=== PATIENT | female | born 1995 | race Two or more races ===

== ENCOUNTER 2019-04-27 17:09 | Emergency (ER) | payer SELFPAY ==
[~2019-04-27] VITALS: Ht 162.6 cm; Wt 63.5 kg
[2019-04-27 17:20] VITALS: BP 114/77
[2019-04-27 18:01] LABS: Basophils # (auto) 0 uL; Basophils % (auto) 0.7 % (0.0-2.0); Eosinophils # (auto) 0 uL; Eosinophils % (auto) 0.6 % (0.0-7.0); Hemoglobin 13.4 g/dL (12.2-16.2); Lymphocytes # (auto) 1.6 uL; Mean Corpuscular Hemoglobin 30.9 pg (28.0-32.0); Mean Corpuscular Hgb Conc. 34.3 g/dL (32.0-36.0); Mean Corpuscular Volume 90.2 fL (80.0-100.0); Monocytes # (auto) 0.3 uL; Monocytes % (auto) 6.2 % (0.0-12.0); Neutrophils # (auto) 3.6 uL; Neutrophils % (auto) 64.5 % (37.0-80.0); Nucleated Red Blood Cells % 0.1 %; Platelet Count (auto) 245 10^3/uL (140-450); Red Blood Cells 4.32 10^6/uL (4.0-5.20); Red Cell Distribution Width 12.8 % (11.8-14.3); White Blood Cell 5.6 10^3/uL (4.4-10.8)
[2019-04-27 18:11] LABS: Alanine Aminotransferase 20 U/L (13-56); Albumin 4.2 g/dL (3.4-5.0); Anion Gap 10 (5-15); Aspartate Aminotransferase 12 U/L (15-37); BUN/Creatinine Ratio 16.4; Blood Urea Nitrogen 11 mg/dL (7-18); Calcium 8.7 mg/dL (8.5-10.1); Carbon Dioxide 24 mmol/L (21-32); Chloride 104 mmol/L (98-107); GFR African American 139 mL/min; GFR Non-African American 115 mL/min; Glucose 85 mg/dL (74-106); Potassium 3.9 mmol/L (3.5-5.1); Sodium 138 mmol/L (136-145)
[2019-04-27 18:16] LABS: Alkaline Phosphatase 86 U/L (45-117); Bilirubin, Total 0.5 mg/dL (0.2-1.0); Total Protein 8.4 g/dL (6.4-8.2)
== END 2019-04-28 03:55 | disposition left against medical advice (07) ==
LOC: ER 17:09
DX: R42 Dizziness and giddiness (principal); R51 Headache; Z53.21 Procedure and treatment not carried out due to patient leaving prior to being seen by health care provider
CPT/HCPCS: 36415; 80053; 82962; 84484; 84702; 85025; 93005

== ENCOUNTER 2022-11-09 20:17 | Emergency (ER) | payer MEDICAID ==
[~2022-11-09] VITALS: Ht 154.9 cm; Wt 65.5 kg
[2022-11-09] MEDS ORDERED: ACETAMINOPHEN 325 MG TAB PO ONE (21:15)
[2022-11-09] MEDS ORDERED: DexAMETHasone SOD PHOS 10MG/1ML VIAL INJ IM ONE (22:45)
[2022-11-09] MEDS ORDERED: HYDROcodone-ACET 5/325MG TAB PO ONE (22:45)
[2022-11-09] MEDS ORDERED: LIDOCAINE VISCOUS 2% 15ML UD PO ONE (22:45)
[2022-11-09] MEDS ORDERED: cefTRIAXone SOD 1,000 MG VL IM ONE (22:45)
[2022-11-09] MEDS ORDERED: IBU600T PO (23:34)
[2022-11-09] MEDS ORDERED: CLIN300C70 PO (23:34)
[2022-11-09] MEDS ORDERED: NYS5LQ MT (23:34)
[2022-11-09] MEDS ORDERED: LIDV15LQ MT (23:34)
[2022-11-10 01:48] VITALS: BP 112/67
== END 2022-11-10 01:55 | disposition home or self-care (01) ==
LOC: ER 20:17
DX: J03.90 Acute tonsillitis, unspecified (principal); R50.9 Fever, unspecified; B37.0 Candidal stomatitis
CPT/HCPCS: 96372; 99284; J0696; J1100